=== PATIENT | female | born 1990 | race Caucasian/White ===

== ENCOUNTER 2016-05-15 03:21 | Emergency (ER) | payer SELFPAY ==
[2016-05-15 03:38] VITALS: TEMP 98.5; BMI 36.7
[2016-05-15] MEDS ORDERED: ONDANSETRON HCL 4 MG ODT TAB PO ONE (03:44)
--- NOTE | 2016-05-15 03:47 | EDPRACDOC ---
- General Information Chief Complaint: Nausea,Vomiting,Diarrhea Stated Complaint: VOMITING & DIARRHEA Time Seen by Provider: 05/15/16 03:36 Information Source: Patient, Family Home Medications: Home Medications Acetaminophen Ex Str Tablet [TYLENOL EXTRA STRENGTH Tablet] 1,000 mg PO TID PRN 07/16/15 Melatonin/Pyridoxine [Melatonin 5 mg Tablet] 1 tab PO QHS PRN 07/16/15 Pseudoephedrine HCl 60 mg PO Q6 PRN #20 tablet 07/18/15 Metronidazole [Flagyl] 500 mg PO BID #14 tab 05/15/16 Ondansetron HCl [Zofran] 4 mg PO TID PRN #14 tablet 05/15/16 Allergies/Adverse Reactions: Allergies Allergy/AdvReac Type Severity Reaction Status Date / Time prednisone Allergy Severe Hives* Verified 07/18/15 07:21 Penicillins Allergy Angioedema* Verified 07/18/15 07:21 - History of Present Illness Onset: 1 Month HPI: NAUSEA VOMITING FOR PAST 6 HOURS. STATES SHE HAS VOMITED 10 TIMES. DIARRHEA ONSET SAME TIME APPROXIMATELY 5-6 EPISODES SINCE LAST 6 HOURS. INTERMITTENT CRAMPY ABDOMINAL PAIN. ALSO HAS HAD VAGINAL DISCHARGE CLEAR WHITISH, SHE ALSO FEELS ANXIOUS JITTERY ON INSIDE. SHE STATES SHE FELT EXACTLY LIKE THIS WITH HER LAST TEST. SHE HAS HAD MULTIPLE HOME TEST WITH SOME BEEN NEGATIVE. SHE THINKS SHE IS HAVING A PHANTOM , AND WANTS US TO CUT OUT HER CONTROL IMPLANT. ED Past Medical History - History Reviewed Yes Nurses notes reviewed and agree except as marked - Patient Medical History Psychological History: Reports: Depression Systemic History: Reports: Diabetes (NIDDM-DIET CONTROLLED). Denies: Cancer Additional Past Surgical History: CSECT - Family Medical History Reports: Hypertension - Social Medical History Smoking Status: Heavy tobacco smoker (5 or more cigarettes/day or daily pipe/ cigar) EDM Review of Systems - Review of Systems ROS Negative Except as Marked: Yes All systems reviewed and were negative except as marked - Physical Exam Constitutional: Alert (Awake), No apparent distress Oriented to: Time, Person, Place Last recorded Vital Signs: Last Vital Signs Temp 98.5 F 05/15/16 03:33 Pulse 105 05/15/16 03:33 Resp 19 05/15/16 03:33 BP 168/94 05/15/16 03:33 Pulse Ox 98 05/15/16 03:33 Oxygen Pulse Oxygen Saturation 98 O2 Device Room Air Oxygen Flow Rate Fraction of Inspired Oxygen ( FIO2) - HEENT Head: Normal ( normocephalic) Eye Exam: Normal (PERRL, EOMI, Sclera white) Oropharynx: Normal (Pharynx:Moist without exudate,Gums-no swelling) Tympanic Membrane: Normal ENT EAC: Normal TMJ: Normal Nose: No Symptoms Reported (septum midline) Neck: Normal (FROM, trachea at midline) - Respiratory/Cardiovascular Respiratory: Normal - CTA (BBS clear to auscultation without adventitious sounds ) Cardiovascular: Normal (RRR without murmur, gallop or rub) - GI Auscultation: Normal (NABS) Palpation: Normal (Soft,No rebound or guarding, non distended) Tenderness: Non tender Noel's Sign: Negative - Bladder: Normal External: Normal Vagina: Normal Cervix: Normal Uterus: Normal size Adnexa: Bilateral: Normal - Musculoskeletal Back: Normal (Non-Tender) Extremities: Normal (Normal tone, Pulses 2+ No cyanosis or edema, FROM) - Integumentary Skin: Normal, Warm, Dry Lymphatics: Normal (no adenopathy) - Neurologic Memory Impaired: Normal Motor Function: Normal (Normal tone, Pulses 2+ No cyanosis or edema, FROM) Cranial Nerve: Normal (CN II-X11 intact sensation, strength 5/5) Cerebellar: Normal Mood Description: Normal Perception: Normal - Results 05/15/16 03:55 - Departure Disposition: Home Final Diagnosis: Nausea vomiting and diarrhea, Bacterial vaginosis Instructions: Acute Nausea and Vomiting (ED), Acute Diarrhea (ED), Abdominal Pain (ED), Bacterial Vaginosis (ED) Education/Counseling Given To: Patient, Friend Education/Counseling Given Regarding: Diagnosis, Treatment, Prognosis Referrals: None,No Provider [NonStaff] - One Week Prescriptions: New Ondansetron HCl [Zofran] 4 mg PO TID PRN #14 tablet PRN Reason: NAUSEA OR VOMITING Metronidazole [Flagyl] 500 mg PO BID #14 tab No Action Melatonin/Pyridoxine [Melatonin 5 mg Tablet] 1 tab PO QHS PRN PRN Reason: Sleep Or Insomnia Acetaminophen Ex Str Tablet [TYLENOL EXTRA STRENGTH Tablet] 1,000 mg PO TID PRN PRN Reason: Pain Pseudoephedrine HCl 60 mg PO Q6 PRN #20 tablet PRN Reason: Congestion Additional Instructions: Drink sips of Gatorade every 2-3 minutes while awake. Do NOT drink large volumes of fluid at once. If you vomit, take the nausea-vomiting medicine prescribed, wait ~ 30 minutes, and restart the sipping process. Return to the Emergency Department if you think you are getting dehydrated, have persistent abdominal pain that is unrelenting, have worse or different symptoms, or any concerns.
[2016-05-15 04:07] LABS: LEUKOCYTES/URINE NEG (NEGATIVE); NITRITE/URINE NEG (NEGATIVE); URINE OCCULT BLOOD NEG (NEG/TRACE); WBC/URINE 0-2 (0-5)
[2016-05-15 04:20] LABS: BLOOD UREA NITROGEN 11 MG/DL (7-17); CALCIUM 8.7 MG/DL (8.4-10.2); CALCULATED OSMOLALITY 270 MOs/Kg (270-290); CHLORIDE 102 mEq/L (98-107); GLUCOSE 143 MG/DL (70-99); SODIUM LEVEL 140 mEq/L (137-146)
[2016-05-15 05:50] VITALS: BP 129/66; PULSE 92
[2016-05-18 16:38] LABS: CHLAMY BY NUCLEIC ACID AMP Negative (Negative)
[2016-05-19 07:56] LABS: GC BY NUCLEIC ACID AMP Negative (Negative)
== END 2016-05-15 05:50 | disposition home or self-care (01) ==
LOC: ED 03:21
DX: R11.2 Nausea with vomiting, unspecified (principal); R19.7 Diarrhea, unspecified; N76.0 Acute vaginitis; B96.89 Other specified bacterial agents as the cause of diseases classified elsewhere; F32.9 Major depressive disorder, single episode, unspecified; E11.9 Type 2 diabetes mellitus without complications; F17.200 Nicotine dependence, unspecified, uncomplicated; Z79.899 Other long term (current) drug therapy
CPT/HCPCS: 36415; 80048; 81001; 81025; 87210; 87220; 87491; 87591; 99284; J3490